=== PATIENT | female | born 1940 ===

== ENCOUNTER 2018-01-02 07:48 | Inpatient (IN) | payer MEDICARE, MEDICAID ==
[2017-12-28 10:01] VITALS: BMI 22.2
[2018-01-02] MEDS ORDERED: ceFAZolin 1 gm in NS 1 GM/100 ML BAG IVPB ONE (07:58)
[2018-01-02] MEDS ORDERED: Lidocaine 1% Inj (20ml) ONE (07:59)
[2018-01-02] MEDS ORDERED: HEPARIN-NS 5,000 UNITS/500 ML 0 UNIT/0 ML BAG IV ONE ×2 (07:59)
[2018-01-02] MEDS ORDERED: Thrombin Topical 20,000 Intl Units Spray Kit TOP ONE (07:59)
[2018-01-02] MEDS ORDERED: HEPARIN-NS 5,000 UNITS/500 ML 5,000 UNIT/500 ML BAG IV ONE (09:48)
[2018-01-02] MEDS ORDERED: Propofol 10 mg/ml Inj (20 ML) ONE (09:52)
[2018-01-02] MEDS ORDERED: Lidocaine Hydrochloride 5 ML INJ ONE (12:01)
[2018-01-02] MEDS ORDERED: ePHEDrine 50 mg/ml Inj ONE (12:01)
[2018-01-02] MEDS ORDERED: Rocuronium 10 mg/ml (10 ml) ONE (12:02)
[2018-01-02] MEDS ORDERED: Nitroglycerin 2% Ointment Foilpak UD TOP PRN (13:21)
[2018-01-02] MEDS ORDERED: ceFAZolin IV 1 gm in Dextrose 1 GM/50 ML BAG IVPB SCH ×3 (13:30→18:00)
--- NOTE | 2018-01-02 13:41 | PCM.SURG1 ---
Surgeon's Initial Post Op Note - Surgeon's Notes Surgeon: Dr. Gibson Reordering Clerk: PGY1, Demetrius OMS3 Type of Anesthesia: General Endo Pre-Operative Diagnosis: Left carotid stenosis Operative Findings: see op note Post-Operative Diagnosis: as above Operation Performed: Left carotid endarterectomy Specimen/Specimens Removed: carotid plaque Estimated Blood Loss: EBL {In ML}: 300 Drains Used: Rocio Date of Surgery/Procedure: 01/02/18 Time of Surgery/Procedure: 13:40
[2018-01-02] MEDS ORDERED: Nitroglycerin 50mg in D5W 50 MG/250 ML BOTTLE IV SCH (13:45)
[2018-01-02 13:52] LABS: MEAN CORPUSCULAR HEMOGLOBIN 30.9 pg (27.0-31.0); MEAN CORPUSCULAR HGB CONC 34.3 g/dL (33.0-37.0); RBC 3.46 Mil/uL (3.80-5.20); RED CELL DISTRIBUTION WIDTH 13.3 % (11.5-14.5)
[2018-01-02 13:59] LABS: HEMOGLOBIN 10.7 g/dL (11.0-16.0)
[2018-01-02] MEDS ORDERED: Oxycodone/Acetaminophen 5/325 mg Tab PO PRN (14:00)
[2018-01-02] MEDS ORDERED: DOPamine 400mg/250ml D5W 400 MG/250 ML BAG IV PRN (14:15)
[2018-01-02] MEDS ORDERED: Sodium Chloride 0.9% 1,000 ML IV SCH (14:45)
--- NOTE | 2018-01-02 14:48 | CP.PCM.CON ---
History of Present Illness - History of Present Illness History of Present Illness: 77 year old female with a past medical history of left carotid stenosis(s/p left carotid endarectomy), hemorrhoids, gastritis, hypertension, pacemaker, ? afib, comes in after having an endarectomy done. History was obtained primarily by the the [facility] as the patient was still partially sedated. The patient did report some pain on the left side of the neck at the site of the surgery. The patient also reported left upper quadrant pain as well. The patient denies any other complaints. Past medical history: hyptertension, hemorrhoids, pacemaker, ?afib Surgical history: Skin graft Allergies: Denies Social history: Denies alcohol or tobacco use. Denies illicit drug use PMD: Dr. Robison. Review of Systems - Constitutional Constitutional: absent: Daytime Sleepiness, Headache, Weakness - EENT Eyes: absent: Blurred Vision, Discharge, Sees Flashes, Other Visual Disturbances , Loss of Vision Ears: absent: Ear Discharge, Dizziness Additional comments: left sided neck pain - Cardiovascular Cardiovascular: absent: Chest Pain, Claudication, Leg Ulcers, Palpitations, Pedal Edema, Syncope - Respiratory Respiratory: absent: Dyspnea, Hemoptysis, Pain on Inspiration, Change in Mucous Color - Gastrointestinal Gastrointestinal: absent: Belching, Change in Stool Character, Dyspepsia, Melena , Nausea, Vomiting - Genitourinary Genitourinary: absent: Difficulty Urinating, Nocturia, Urinary Urgency, Hx Renal /Bladder Calculi - Musculoskeletal Musculoskeletal: Neck Pain. absent: Arthralgias, Atrophy, Limited Range of Motion - Neurological Neurological: absent: Tingling, Tremor, Vertigo, Weakness - Endocrine Endocrine: absent: Polydipsia, Polyphagia, Polyuria - Hematologic/Lymphatic Hematologic: absent: Easy Bleeding, Easy Bruising Past Patient History - Past Medical History & Family History Past Medical History?: Yes - Past Social History Smoking Status: Never Smoked - CARDIAC Hx Cardiac Disorders: Yes Hx Angina: Yes (Sometimes) Hx Cardia Arrhythmia: Yes (Pacemaker) Hx Hypercholesterolemia: Yes Hx Hypertension: Yes Hx Peripheral Edema: (Not at present) - PULMONARY Hx Respiratory Disorders: No - NEUROLOGICAL Hx Neurological Disorder: Yes (Carotid stenosis) Hx Dizziness: Yes - HEENT Hx HEENT Problems: No - RENAL Hx Chronic Kidney Disease: No - ENDOCRINE/METABOLIC Hx Endocrine Disorders: No - HEMATOLOGICAL/ONCOLOGICAL Hx Blood Disorders: No - INTEGUMENTARY Hx Dermatological Problems: No - MUSCULOSKELETAL/RHEUMATOLOGICAL Hx Musculoskeletal Disorders: Yes Hx Osteoporosis: Yes - GASTROINTESTINAL Hx Gastrointestinal Disorders: Yes Hx Pancreatitis: Yes - GENITOURINARY/GYNECOLOGICAL Hx Genitourinary Disorders: No - PSYCHIATRIC Hx Psychophysiologic Disorder: No - SURGICAL HISTORY Hx Surgeries: Yes Hx Section: Yes Other/Comment: Repair of scalp laceration due to dog bites. - ANESTHESIA Hx Anesthesia: Yes Hx Anesthesia Reactions: No Hx Malignant Hyperthermia: No Has any member of the family had a problem w/ anesthesia?: No Meds Allergies/Adverse Reactions: Allergies Allergy/AdvReac Type Severity Reaction Status Date / Time No Known Allergies Allergy Verified 05/16/13 07:36 - Medications Medications: Current Medications Aspirin (Ecotrin) [address] [facility] Clopidogrel Bisulfate (Plavix) [address] [facility] Home Med (Atorvastatin Calcium [Atorvastatin Calcium]) [address] [facility] Hydromorphone HCl (Dilaudid) 0.5 mg IVP Q5M PRN PRN Reason: Pain, severe (8-10) Stop: 01/02/18 15:18 Potassium Chloride/Dextrose/Sod Cl (Potassium Chl 20 Meq In D5-1/2ns) 1,000 mls @ 100 mls/hr IV .Q10H GELACIO Dopamine HCl/Dextrose (Dopamine 400mg/250ml D5w) 400 mg in 250 mls @ 3.742 mls/ hr IV .Q24H PRN; Protocol; 2 MCG/KG/MIN PRN Reason: TITRATE PER MD ORDER Cefazolin Sodium/Dextrose (Ancef Iv 1 Gm Duplex) 1 gm in 50 mls @ 100 mls/hr IVPB Q8H GELACIO Stop: 01/02/18 22:14 Nitroglycerin/Dextrose (Nitroglycerin 50 Mg/250 Ml D5w) 50 mg in 250 mls @ 1.5 mls/hr IV .Q24H GELACIO; 5 MCG/MIN PRN Reason: Protocol Sodium Chloride (Sodium Chloride 0.9%) 1,000 mls @ 100 mls/hr IV .Q10H GELACIO Morphine Sulfate (Morphine) 2 mg IVP Q4 PRN PRN Reason: Pain, moderate (4-7) Nitroglycerin (Nitro-Bid 2% Oint) 1 ea TOP Q2H PRN PRN Reason: Systolic Blood Pressure Ondansetron HCl (Zofran Inj) 4 mg IVP Q4 PRN PRN Reason: Nausea/Vomiting Oxycodone/Acetaminophen (Percocet 5/325 Mg Tab) 1 tab PO Q4H PRN PRN Reason: Pain, Mild (1-3) Stop: 01/05/18 14:01 Physical Exam - Head Exam Head Exam: ATRAUMATIC, NORMAL INSPECTION, NORMOCEPHALIC - Eye Exam Eye Exam: EOMI, Normal appearance, PERRL Pupil Exam: NORMAL ACCOMODATION, PERRL - ENT Exam Additional comments: left side of neck bandaged. - Neck Exam Neck exam: Positive for: Tenderness - Respiratory Exam Respiratory Exam: Clear to Auscultation Bilateral, NORMAL BREATHING PATTERN. absent: Respiratory Distress - Cardiovascular Exam Cardiovascular Exam: Clicks, +S1, +S2 - GI/Abdominal Exam GI & Abdominal Exam: Normal Bowel Sounds, Soft. absent: Organomegaly, Tenderness - Extremities Exam Extremities exam: Positive for: normal inspection. Negative for: full ROM, pedal edema - Neurological Exam Neurological exam: Alert, Oriented x3 - Psychiatric Exam Psychiatric exam: Normal Affect, Normal Mood - Skin Skin Exam: Dry, Intact Results - Vital Signs Recent Vital Signs: Last Vital Signs Temp 98.7 F 01/02/18 13:10 Pulse 62 01/02/18 14:00 Resp 18 01/02/18 14:00 BP 97/50 L 01/02/18 14:00 Pulse Ox 100 01/02/18 14:00 - Labs Result Diagrams: 01/03/18 06:17 01/03/18 06:16 Labs: Laboratory Results - last 24 hr 01/02/18 01/02/18 12:19 13:41 WBC 7.0 RBC 3.46 L Hgb 10.7 L D Hct 31.2 L MCV 90.0 MCH 30.9 MCHC 34.3 RDW 13.3 Plt Count 210 MPV 10.0 Blood Type A POSITIVE Antibody Screen Negative Assessment & Plan - Assessment and Plan (Free Text) Assessment: 77 year old female with a past medical history of left carotid stenosis(s/p left carotid endarectomy), hemorrhoids, gastritis, hypertension, pacemaker, ? afib, comes in after having an endarectomy done for monitoring. Patient will be admitted to ICU for further monitoring overnight. Plan: -IV fluids NS @100cc/hr -BP medications help due to the patient's low blood pressure -CBC, CMP ordered .Will f/u with results. -Troponin ordered. Will f/u with results. -Continue Plavix
[2018-01-02] MEDS: HYDROmorphone 0.5 mg/0.5 ml ISec IVP PRN ×2 (15:24→15:53)
[2018-01-02] MEDS: Potassium Ch 20mEq in D5-1/2NS 1,000 ML IV SCH (15:54)
[2018-01-02] MEDS ORDERED: Sodium Chloride 0.9% 1,000 ML IV ONE (16:19)
[2018-01-02 16:28] LABS: ALB/GLOB RATIO 1.3 (1.0-2.1); ALBUMIN 3.1 g/dL (3.5-5.0); ALT/SGPT 28 U/L (9-52); AST/SGOT 25 U/L (14-36); BLOOD UREA NITROGEN 14 mg/dL (7-17); CALCIUM 8.2 mg/dl (8.6-10.4); GFR AFRICAN-AMERICAN > 60; GFR NON-AFRICAN AMERICAN 54; MAGNESIUM 1.7 mg/dL (1.6-2.3)
[2018-01-02] MEDS: ceFAZolin 1 gm in NS 1 GM/100 ML BAG IVPB SCH (18:15)
[2018-01-02 19:32] LABS: HEMOGLOBIN 9.8 g/dL (11.0-16.0); MEAN CELL VOLUME 90.9 fL (81.0-99.0); MEAN CORPUSCULAR HEMOGLOBIN 30.4 pg (27.0-31.0); MEAN CORPUSCULAR HGB CONC 33.4 g/dL (33.0-37.0); MEAN PLATELET VOLUME 9.8 fL (7.2-11.7); RBC 3.22 Mil/uL (3.80-5.20); RED CELL DISTRIBUTION WIDTH 13.5 % (11.5-14.5)
[2018-01-03] MEDS: Potassium Ch 20mEq in D5-1/2NS 1,000 ML IV SCH ×2 (00:54→09:30)
[2018-01-03] MEDS: ceFAZolin 1 gm in NS 1 GM/100 ML BAG IVPB SCH (01:51)
[2018-01-03 06:32] LABS: BASO % 0.1 % (0.0-2.0); HEMOGLOBIN 9.6 g/dL (11.0-16.0); LYMPH # 0.9 K/uL (1.0-4.3); LYMPH % 6.1 % (20.0-40.0); MEAN CELL VOLUME 90.8 fL (81.0-99.0); MEAN CORPUSCULAR HEMOGLOBIN 30.4 pg (27.0-31.0); MEAN CORPUSCULAR HGB CONC 33.5 g/dL (33.0-37.0); MEAN PLATELET VOLUME 10.3 fL (7.2-11.7); MONO # 0.8 K/uL (0.0-0.8); MONO % 5.6 % (0.0-10.0); NEUT # 13.3 K/uL (1.8-7.0); NEUT % 88.2 % (50.0-75.0); PLATELET COUNT 183 K/uL (130-400); RBC 3.17 Mil/uL (3.80-5.20); RED CELL DISTRIBUTION WIDTH 13.7 % (11.5-14.5)
[2018-01-03 06:37] LABS: ALB/GLOB RATIO 1.4 (1.0-2.1); ALBUMIN 3.4 g/dL (3.5-5.0); ALT/SGPT 27 U/L (9-52); AST/SGOT 27 U/L (14-36); BLOOD UREA NITROGEN 14 mg/dL (7-17); CALCIUM 8.8 mg/dl (8.6-10.4); GFR AFRICAN-AMERICAN > 60; GFR NON-AFRICAN AMERICAN > 60
--- NOTE | 2018-01-03 07:06 | OP ---
PROCEDURE DATE: 01/02/2018 PREOPERATIVE DIAGNOSIS: Left carotid stenosis. POSTOPERATIVE DIAGNOSIS: Left carotid stenosis. PROCEDURE CARRIED OUT: Left carotid endarterectomy. SURGEON: Bryan Gibson Jr., MD FOOD SERVICE COUNTER CLERK: Dr. Sherman. ANESTHESIOLOGIST: Ms. Gage CRNA. INDICATIONS: The patient is an elderly woman with very good health, remote history of a pacemaker, recent cardiac evaluation, found to have a 95% stenosis on the left side. OPERATIVE FINDINGS: 1. This is a bifid that extended approximately a centimeter and a half up the internal carotid artery. 2. There is a clean end point, tacking sutures were used and Vascu-Guard LeMaitre Porcine Patch was placed. The drain was left and a Scoma shunt was used. The only technical involvement during the operations are during removal of Scoma shunt, the part detached that was detached to sensor and this led to a blood loss of approximately 300 mL. DESCRIPTION OF PROCEDURE: The patient was given general anesthesia, intravenous antibiotics, and an incision was made exposing the common internal and external carotid arteries. After identification of the appropriate vessels, the hypoglossal nerve heparin was given, the vessels were clamped. The endarterectomy carried out over a Scoma shunt, and then the only technical problem occurred during its removal where there is bleeding, but other than this, it went quite well. There was excellent Doppler flow and pulses in the graft after the end of the procedure. The skin was closed with subcuticular closure and Steri-Strips. Blood loss was 300 mL. The operation carried out is left carotid endarterectomy. Bryan Gibson Jr., MD cc:
[2018-01-03] MEDS: Aspirin 325 mg EC Tablets PO SCH (09:10)
[2018-01-03 09:43] LABS: BANDS 1 % (0-2); LYMPHOCYTE 3 % (20-40); METAMYELOCYTE 1 % (0-0); MONOCYTE 4 % (0-10); NEUTROPHIL 91 % (50-75); OVALOCYTES SLIGHT; PLATELET ESTIMATE NORMAL (NORMAL); TOTAL CELLS COUNTED 100
--- NOTE | 2018-01-04 03:04 | CP.PCM.PN ---
Subjective - Date & Time of Evaluation Date of Evaluation: 01/03/18 Time of Evaluation: 07:20 - Subjective Subjective: Vascular surgery progress note for Dr. Zenia Hightower, PGY-1 Pt S & E at bedside. Pt reports minimal pain at left neck surgical site. No other complaints. Objective - Vital Signs/Intake and Output Vital Signs (last 24 hours): Temp Pulse Resp BP Pulse Ox 98.2 F 70 20 151/71 H 95 01/03/18 23:20 01/03/18 23:20 01/03/18 23:20 01/03/18 23:20 01/03/18 23:20 Intake and Output: 01/03/18 01/04/18 18:59 06:59 Intake Total 1890 Output Total 1400 Balance 490 - Medications Medications: Current Medications Aspirin (Ecotrin) 325 mg PO DAILY [facility] Last Admin: 01/03/18 09:10 Dose: 325 mg Clopidogrel Bisulfate (Plavix) 75 mg PO DAILY [facility] Last Admin: 01/03/18 09:10 Dose: 75 mg Dopamine HCl/Dextrose (Dopamine 400mg/250ml D5w) 400 mg in 250 mls @ 3.742 mls/ hr IV .Q24H PRN; Protocol; 2 MCG/KG/MIN PRN Reason: TITRATE PER MD ORDER Nitroglycerin/Dextrose (Nitroglycerin 50 Mg/250 Ml D5w) 50 mg in 250 mls @ 1.5 mls/hr IV .Q24H GELACIO; 5 MCG/MIN PRN Reason: Protocol Morphine Sulfate (Morphine) 2 mg IVP Q4 PRN PRN Reason: Pain, moderate (4-7) Nitroglycerin (Nitro-Bid 2% Oint) 1 ea TOP Q2H PRN PRN Reason: Systolic Blood Pressure Ondansetron HCl (Zofran Inj) 4 mg IVP Q4 PRN PRN Reason: Nausea/Vomiting Oxycodone/Acetaminophen (Percocet 5/325 Mg Tab) 1 tab PO Q4H PRN PRN Reason: Pain, Mild (1-3) Stop: 01/05/18 14:01 Last Admin: 01/03/18 05:39 Dose: 1 tab Rosuvastatin Calcium (Crestor) 10 mg PO HS [facility] Last Admin: 01/03/18 21:23 Dose: 10 mg - Labs Labs: 01/03/18 06:17 01/03/18 06:16 - Constitutional Appears: Non-toxic, No Acute Distress - Head Exam Head Exam: ATRAUMATIC, NORMAL INSPECTION, NORMOCEPHALIC - Eye Exam Eye Exam: EOMI, Normal appearance - ENT Exam ENT Exam: Mucous Membranes Moist, Normal Exam - Neck Exam Additional comments: Left neck with dressing in place, scant strike through on dressing - Respiratory Exam Respiratory Exam: NORMAL BREATHING PATTERN - Cardiovascular Exam Cardiovascular Exam: REGULAR RHYTHM, +S1, +S2 - Extremities Exam Extremities Exam: Normal Inspection - Neurological Exam Neurological Exam: Alert, Awake, CN II-XII Intact, Oriented x3 - Psychiatric Exam Psychiatric exam: Normal Affect, Normal Mood - Skin Skin Exam: Dry, Intact, Normal Color, Warm Assessment and Plan - Assessment and Plan (Free Text) Assessment: 77F POD#1 s/p L CEA Plan: Ok to transfer [facility] ICU Drain to be removed by attending Pain control cont HHD Anti-emetic OK to continue home meds Dressing to stay in place per attending Attending will determine if drain is to be removed OOBTC Ambulate Will continue to monitor DW attending Katja, PGY-1
[2018-01-04 08:36] VITALS: RESP 20
--- NOTE | 2018-01-04 08:53 | CP.PCM.DIS ---
Provider - Provider Date of Admission: 01/02/18 07:48 Attending physician: Bryan Gibson Jr, MD Primary care physician: Vascular surgery- Dr. Gibson Consults: Critical care Time Spent in preparation of Discharge (in minutes): 35 Diagnosis - Discharge Diagnosis (1) Carotid arterial disease Status: Acute (2) Postoperative carotid endarterectomy surveillance, encounter for Status: Acute (3) S/P carotid endarterectomy Status: Acute Hospital Course - Lab Results Lab Results: Most Recent Lab Values WBC 15.0 K/uL (4.8-10.8) H 01/03/18 06:17 RBC 3.17 Mil/uL (3.80-5.20) L 01/03/18 06:17 Hgb 9.6 g/dL (11.0-16.0) L 01/03/18 06:17 Hct 28.7 % (34.0-47.0) L 01/03/18 06:17 MCV 90.8 fL (81.0-99.0) 01/03/18 06:17 MCH 30.4 pg (27.0-31.0) 01/03/18 06:17 MCHC 33.5 g/dL (33.0-37.0) 01/03/18 06:17 RDW 13.7 % (11.5-14.5) 01/03/18 06:17 Plt Count 183 K/uL (130-400) 01/03/18 06:17 MPV 10.3 fL (7.2-11.7) 01/03/18 06:17 Neut % (Auto) 88.2 % (50.0-75.0) H 01/03/18 06:17 Lymph % (Auto) 6.1 % (20.0-40.0) L 01/03/18 06:17 Island % (Auto) 5.6 % (0.0-10.0) 01/03/18 06:17 Eos % (Auto) 0.0 % (0.0-4.0) 01/03/18 06:17 Baso % (Auto) 0.1 % (0.0-2.0) 01/03/18 06:17 Neut # (Auto) 13.3 K/uL (1.8-7.0) H 02/20/18 06:17 Lymph # (Auto) 0.9 K/uL (1.0-4.3) L 01/03/18 06:17 Island # (Auto) 0.8 K/uL (0.0-0.8) 01/03/18 06:17 Eos # (Auto) 0.0 K/uL (0.0-0.7) 01/03/18 06:17 Baso # (Auto) 0.0 K/uL (0.0-0.2) 01/03/18 06:17 Neutrophils % (Manual) 91 % (50-75) H 01/03/18 06:17 Band Neutrophils % 1 % (0-2) 01/03/18 06:17 Lymphocytes % (Manual) 3 % (20-40) L 01/03/18 06:17 Monocytes % (Manual) 4 % (0-10) 01/03/18 06:17 Metamyelocytes % 1 % (0-0) H 01/03/18 06:17 Platelet Estimate Normal (NORMAL) 01/03/18 06:17 Ovalocytes Slight 01/03/18 06:17 Sodium 135 mmol/L (132-148) 01/03/18 06:16 Potassium 4.0 mmol/L (3.6-5.2) 01/03/18 06:16 Chloride 103 mmol/L (98-107) 01/03/18 06:16 Carbon Dioxide 23 mmol/L (22-30) 01/03/18 06:16 Anion Gap 13 (10-20) 01/03/18 06:16 BUN 14 mg/dL (7-17) 01/03/18 06:16 Creatinine 0.9 mg/dL (0.7-1.2) 01/03/18 06:16 Est GFR ( Amer) > 60 01/03/18 06:16 Est GFR (Non-Af Amer) > 60 01/03/18 06:16 Random Glucose 161 mg/dL (65-105) H 01/03/18 06:16 Calcium 8.8 mg/dl (8.6-10.4) 01/03/18 06:16 Phosphorus 4.0 mg/dL (2.5-4.5) 01/02/18 16:06 Magnesium 1.7 mg/dL (1.6-2.3) 01/02/18 16:06 Total Bilirubin 0.2 mg/dL (0.2-1.3) 01/03/18 06:16 AST 27 U/L (14-36) 01/03/18 06:16 ALT 27 U/L (9-52) 01/03/18 06:16 Alkaline Phosphatase 64 U/L (38-126) 01/03/18 06:16 Troponin I < 0.0120 ng/mL (0.00-0.120) 01/02/18 16:55 Total Protein 6.0 g/dL (6.3-8.3) L 01/03/18 06:16 Albumin 3.4 g/dL (3.5-5.0) L 01/03/18 06:16 Globulin 2.6 gm/dL (2.2-3.9) 01/03/18 06:16 Albumin/Globulin Ratio 1.4 (1.0-2.1) 01/03/18 06:16 Blood Type A POSITIVE 01/02/18 12:19 Antibody Screen Negative 01/02/18 12:19 - Hospital Course Hospital Course: 77F with left carotid arterial disease admitted post op Left carotid endarterctomy for close monitoring in ICU. Pt tolerated procedure well, however was monitored until POD #2. Pt with slight hoarseness of voice, but audible and mild. Pt stable and ready for discharge home with instructions to follow up next week with Dr. Gibson in the office. Pt is to leave dressing in place until then, keeping it clean and dry. Discharge Exam - Head Exam Head Exam: ATRAUMATIC, NORMAL INSPECTION, NORMOCEPHALIC - Eye Exam Eye Exam: EOMI, Normal appearance - ENT Exam ENT Exam: Mucous Membranes Moist, Normal Exam - Neck Exam Additional comments: left dressing removed at bedside- sanguinous strike through. Dressing replaced by Dr. Gibson. - Respiratory Exam Respiratory Exam: NORMAL BREATHING PATTERN, UNREMARKABLE - Cardiovascular Exam Cardiovascular Exam: REGULAR RHYTHM, +S1, +S2 - GI/Abdominal Exam GI & Abdominal Exam: Unremarkable - Extremities Exam Extremities exam: normal inspection - Neurological Exam Neurological exam: Alert, CN II-XII Intact, Oriented x3 - Psychiatric Exam Psychiatric exam: Normal Affect, Normal Mood - Skin Skin Exam: Dry, Intact, Normal Color, Warm Discharge Plan - Follow Up Plan Condition: GOOD Disposition: HOME/ ROUTINE Instructions: Carotid Artery Endarterectomy, Carotid Artery Disease (DC) Additional Instructions: Please leave dressing in place, do not remove, ok to shower if you cover with plastic to keep it clean and dry. Call to schedule an appointment with Dr. Gibson next week. He will remove the dressing. You may resume a normal diet. You may resume all home medications. Please return to hospital if you have inability to talk or notice a lump under the dressing. Referrals: Bryan Gibson Jr., MD [Staff Provider] -
[2018-01-04] MEDS: Aspirin 325 mg EC Tablets PO SCH (10:10)
[2018-01-04 15:33] VITALS: BP 134/65; PULSE 73; TEMP 98.7; O2SAT 99
== END 2018-01-04 18:51 | disposition home or self-care (01) | DRG 39 ==
LOC: C.9S 07:48 → C.9I 20:46 → C.6T 01-03 21:53
PROVIDERS: ADMIT Surgery Vascular Surgery; ATTEND Surgery Vascular Surgery
PROC: 03CL0ZZ Extirpation of Matter from Left Internal Carotid Artery, Open Approach (ICD-10-PCS; principal; 2018-01-02 09:45)
DX: I65.22 Occlusion and stenosis of left carotid artery (principal); I48.91 Unspecified atrial fibrillation; I10 Essential (primary) hypertension; E78.00 Pure hypercholesterolemia, unspecified; M81.0 Age-related osteoporosis without current pathological fracture; K64.9 Unspecified hemorrhoids; K29.70 Gastritis, unspecified, without bleeding